=== PATIENT | male | born 1965 | race Caucasian/White ===

== ENCOUNTER → 2023-01-11 14:02 | Outpatient (CLI) | payer OTHER, MEDICAID, SELFPAY | PROVIDERS: PCP Family Medicine; Referring Provider Family Medicine; Visit Provider Surgery | DX: I87.2 Venous insufficiency (chronic) (peripheral) (principal); L97.322 Non-pressure chronic ulcer of left ankle with fat layer exposed; R60.0 Localized edema | CPT/HCPCS: 99203; 99213 ==

== ENCOUNTER → 2023-01-30 09:44 | Outpatient (CLI) | payer OTHER, MEDICAID, SELFPAY | PROVIDERS: PCP Family Medicine; Referring Provider Family Medicine; Visit Provider Surgery | DX: I87.2 Venous insufficiency (chronic) (peripheral) (principal) | CPT/HCPCS: 99213 ==